=== PATIENT | female | born 1990 | race Caucasian/White ===

== ENCOUNTER 2019-10-22 20:02 | Emergency (ER) | payer MEDICAID ==
[~2019-10-22] VITALS: Ht 162.6 cm; Wt 56.5 kg
[2019-10-22 20:10] VITALS: BP 132/94
--- NOTE | 2019-10-22 22:09 | NUR ---
PT RETURNED FROM US, NAD NOTED. PELVIC GURNEY AND SUPPLIES READY FOR PELVIC EXAM. UA COLLECTED AND SENT TO LAB
[2019-10-22 22:31] LABS: BASOPHILS # (AUTO) 0.01 x10^3/uL (0-0.1); BASOPHILS % (AUTO) 0 % (0-1); EOSINOPHILS # (AUTO) 0.02 x10^3/uL (0-0.4); EOSINOPHILS % (AUTO) 0 % (1-7); LYMPHOCYTES # (AUTO) 1.49 x10^3/uL (1-3.4); LYMPHOCYTES % (AUTO) 15 % (22-44); MD NO; MEAN CORPUSCULAR HEMOGLOBIN 31.2 pg (27.0-34.8); MEAN CORPUSCULAR HGB CONC 33.8 g/dL (32.4-35.8); MEAN CORPUSCULAR VOLUME 92.2 fL (80-100); MEAN PLATELET VOLUME 8.9 fL (7.4-10.4); MONOCYTES # (AUTO) 0.85 x10^3/uL (0.2-0.8); MONOCYTES % (AUTO) 8 % (2-9); NEUTROPHILS % (AUTO) 77 % (42-75); PLATELET COUNT 274 x10^3/uL (130-400); RED BLOOD COUNT 4.86 x10^6/uL (3.82-5.3); RED CELL DISTRIBUTION WIDTH 13.3 % (9.6-15.2)
[2019-10-22 22:32] LABS: MICROSCOPIC INDICATED
--- NOTE | 2019-10-22 22:36 | NUR ---
PELVIC EXAM COMPLETED BY ERP. THIS RN AT BEDSIDE THROUGHOUT. PT TOLERATED WELL
[2019-10-22 22:42] LABS: WET PREP WBCS FEW (FEW)
[2019-10-22 22:44] LABS: CLUE CELLS PRESENT (NONE SEEN)
[2019-10-22 22:45] LABS: ALANINE AMINOTRANSFERASE 53 U/L (12-78); ALBUMIN 3.6 g/dL (3.4-5.0); ANION GAP 4 mmol/L (5-15); CHLORIDE 104 mmol/L (98-107); CREATININE 0.88 mg/dL (0.55-1.02)
[2019-10-22 22:49] LABS: ALKALINE PHOSPHATASE 90 U/L (45-117); BILIRUBIN,TOTAL 0.8 mg/dL (0.2-1.0); TOTAL PROTEIN 8.2 g/dL (6.4-8.2)
[2019-10-22] MEDS ORDERED: AZITHROMYCIN 250 MG TABLET ONE (22:56)
[2019-10-22] MEDS ORDERED: CEFTRIAXONE 250 MG ONE (22:56)
[2019-10-22] MEDS ORDERED: AZITHROMYCIN 500 MG TABLET PO ONE (23:00)
[2019-10-22] MEDS ORDERED: CEFTRIAXONE 250 MG IM ONE (23:00)
--- NOTE | 2019-10-22 23:22 | NUR ---
PT MEDICATED PER EMAR. AWAITING DC.
--- NOTE | 2019-10-22 23:44 | NUR ---
NO S/S OF ABX RXN NOTED. DC EDUCATION PROVIDED, PT DEMONSTRATES UNDERSTANDING. PT AMBULATED STEADILY TO DC WITH RN
== END 2019-10-22 23:46 | disposition home or self-care (01) ==
LOC: ED 23:12
DX: A56.01 Chlamydial cystitis and urethritis (principal); A54.01 Gonococcal cystitis and urethritis, unspecified; N76.0 Acute vaginitis; F15.20 Other stimulant dependence, uncomplicated; F17.200 Nicotine dependence, unspecified, uncomplicated
CPT/HCPCS: 36415; 76770; 80053; 81001; 83690; 84703; 85025; 87077; 87086; 87186; 87210; 87491; 87591; 87808; 96372; 99284; J0696